=== PATIENT | female | born 1975 | race Caucasian/White ===

== ENCOUNTER → 2016-12-22 | Outpatient (CLI) | payer OTHER ==
--- NOTE | 2016-12-22 12:43 | RAD ---
Left shoulder arthrogram Indication: Left shoulder pain. Technique: After discussion of the risks and benefits, consent was obtained. Time outs were performe d. Local anesthetic was applied after the patient was prepped and draped in the usual sterile fashio n. A mixture of gadolinium contrast, saline and lidocaine were placed into the joint under fluorosco pic guidance. Findings: Expected appearance of arthrogram. Impression: Successful left shoulder arthrogram without acute complication. Reported By:
--- NOTE | 2016-12-22 12:49 | MRI ---
MR left shoulder arthrogram Indication: Left shoulder pain. Technique: Multiplanar multi sequence imaging through the left shoulder after intra-articular contra st per protocol. See separately dictated arthrogram report. No IV contrast given. Findings: There is type 1 acromion which slightly down slopes narrowing the acromiohumeral interval. The bone marrow signal is normal. Neurovascular structures are intact. Biceps tendon is normal. Subscapularis tendon is intact. The supraspinatus and infraspinatus tendons are intact with minimal supraspinatus tendinosis. There is high signal in the superior glenoid labrum compatible with small slap tear. Impression: 1. High signal at the superior glenoid labrum may represent small focal slap tear. No large displace d tear seen. 2. The rotator cuff is intact with minimal supraspinatus tendinosis. 3. No other acute abnormality seen. Reported By:
== END ==
LOC: RAD 10:37
PROVIDERS: ATTEND Specialist
DX: M75.82 Other shoulder lesions, left shoulder (principal)
CPT/HCPCS: 23350; 73040; 73222; 77002